=== PATIENT | male | born 2000 | race Hispanic/Latino ===

== ENCOUNTER 2022-09-06 17:25 | Emergency (ER) | payer OTHER ==
[2022-09-06] VITALS (12 sets, daily range): BP systolic 114–147; BP diastolic 78–98
[~2022-09-06] VITALS: Ht 167.6 cm; Wt 85.0 kg
[2022-09-06] MEDS ORDERED: KEFLEX500 MG PO (19:49)
== END 2022-09-06 20:05 | disposition home or self-care (01) | DRG 605 ==
LOC: ED 17:25
PROC: 0HQ0XZZ Repair Scalp Skin, External Approach (ICD-10-PCS; principal; 2022-09-06)
DX: S01.01XA Laceration without foreign body of scalp, initial encounter (principal); W22.8XXA Striking against or struck by other objects, initial encounter; Y92.89 Other specified places as the place of occurrence of the external cause; Y99.0 Civilian activity done for income or pay

== ENCOUNTER 2022-09-15 10:27 | Emergency (ER) | payer SELFPAY ==
[~2022-09-15] VITALS: Ht 167.6 cm; Wt 176.0 kg
[~2022-09-15 10:27] MED LIST: KEFLEX500 MG PO
[2022-09-15 10:43] VITALS: BP 121/82
[2022-09-15 10:45] VITALS: BP 115/89
[2022-09-15 10:57] VITALS: BP 115/89
== END 2022-09-15 11:00 | disposition home or self-care (01) | DRG 951 ==
LOC: ED 10:27
DX: Z48.02 Encounter for removal of sutures (principal)